=== PATIENT | male | born 1980 | race Caucasian/White ===

== ENCOUNTER 2017-10-13 03:35 | Emergency (ER) | payer MEDICAID, OTHER ==
[~2017-10-13] VITALS: Ht 165.1 cm; Wt 68.8 kg
[~2017-10-13 03:35] MED LIST: BACDS PO; NO HOME MEDS
[2017-10-13 03:48] VITALS: BP 110/73
[2017-10-13] MEDS ORDERED: benoxinate/fluorescein ophth drops 5ml bottle RIGHTEYE ONE (08:00)
[2017-10-13] MEDS ORDERED: TOBR5DRO2 RIGHTEYE (08:17)
== END 2017-10-13 08:26 | disposition home or self-care (01) ==
LOC: ER 03:35
DX: S05.01XA Injury of conjunctiva and corneal abrasion without foreign body, right eye, initial encounter (principal); X58.XXXA Exposure to other specified factors, initial encounter; Y93.89 Activity, other specified; Y92.89 Other specified places as the place of occurrence of the external cause; Y99.8 Other external cause status
CPT/HCPCS: 99283

== ENCOUNTER 2021-06-16 09:35 | Emergency (ER) | payer MEDICAID, OTHER ==
[~2021-06-16] VITALS: Ht 165.1 cm; Wt 83.6 kg
[~2021-06-16 09:35] MED LIST changes: +TOBR5DRO2 RIGHTEYE
[2021-06-16 09:36] VITALS: BP 135/81
[2021-06-16] MEDS ORDERED: VALA100031 PO (11:17)
== END 2021-06-16 12:21 | disposition home or self-care (01) ==
LOC: ER 09:35
DX: B00.9 Herpesviral infection, unspecified (principal); K58.1 Irritable bowel syndrome with constipation; L98.9 Disorder of the skin and subcutaneous tissue, unspecified; Z79.2 Long term (current) use of antibiotics; Z79.899 Other long term (current) drug therapy; Z72.89 Other problems related to lifestyle
CPT/HCPCS: 99283

== ENCOUNTER 2022-01-07 16:55 | Emergency (ER) | payer MEDICAID ==
[~2022-01-07] VITALS: Ht 167.6 cm; Wt 72.7 kg
[~2022-01-07 16:55] MED LIST changes: +VALA100031 PO
[2022-01-07 17:05] VITALS: BP 114/65
[2022-01-07] MEDS ORDERED: ketorolac trometh inj. 60 MG/2 ML VIAL IM ONE (17:55)
[2022-01-07] MEDS ORDERED: NAPR-56 PO (17:55)
== END 2022-01-07 18:10 | disposition home or self-care (01) ==
LOC: ER 16:56
DX: M70.21 Olecranon bursitis, right elbow (principal); Y93.89 Activity, other specified
CPT/HCPCS: 96372; 99283; J1885; A6449

== ENCOUNTER 2023-09-26 18:15 | Emergency (ER) | payer BC, MEDICAID ==
[~2023-09-26] VITALS: Ht 165.1 cm; Wt 68.2 kg
[2023-09-26] MEDS: CefTRIAXone 1000mg IM Kit (w/lidocaine diluent) IM ONE (19:45)
[2023-09-26 20:02] LABS: BILIRUBIN,URINE NEGATIVE (Neg); CLARITY,URINE CLEAR (Clear); COLOR,URINE STRAW (Yellow); GLUCOSE, URINE NEGATIVE (Neg); KETONES,URINE NEGATIVE (Neg); LEUKOCYTE ESTERASE ,URINE NEGATIVE (Neg); NITRITES, URINE NEGATIVE (Neg); OCCULT BLOOD,URINE NEGATIVE (Neg); PROTEIN,URINE NEGATIVE (Neg); UROBILINOGEN,URINE 0.2 E.U/dL (0.2-1.0)
[2023-09-26 20:08] LABS: UA COLLECTION TYPE URINAL
[2023-09-26] MEDS ORDERED: DOXY-1 PO (20:53)
[2023-09-26] MEDS: azithromycin 250mg tablet PO ONE (20:59)
[2023-09-26 21:07] VITALS: BP 132/97; PULSE 86; RESP 16; TEMP 97.8; O2SAT 97
[2023-09-29 05:19] LABS: CHLAMYDIA TRACHOMATIS, NAA Negative (Negative)
== END 2023-09-26 21:10 | disposition home or self-care (01) ==
LOC: ER 18:15
DX: N45.1 Epididymitis (principal); N34.2 Other urethritis; Z79.899 Other long term (current) drug therapy; Z87.891 Personal history of nicotine dependence; Z72.89 Other problems related to lifestyle
CPT/HCPCS: 36415; 76870; 81003; 87491; 87591; 93976; 96372; 99285; J0696